=== PATIENT | male | born 1970 | race Caucasian/White ===

== ENCOUNTER 2021-07-27 20:35 | Emergency (ER) | payer OTHER ==
[~2021-07-27] VITALS: Ht 177.8 cm; Wt 99.8 kg
[2021-07-27] MEDS ORDERED: AZOR 5-20 MG T1 EACH (20:42)
[2021-07-27] MEDS ORDERED: AMOX-CLAV 875-1 EAC1 PO (23:58)
[2021-07-27] MEDS ORDERED: MEDROLPACK PO (23:59)
== END 2021-07-27 23:34 | disposition home or self-care (01) ==
LOC: ER 20:35
DX: J06.9 Acute upper respiratory infection, unspecified (principal); J02.9 Acute pharyngitis, unspecified; Z03.818 Encounter for observation for suspected exposure to other biological agents ruled out